=== PATIENT | female | born 1990 | race African-American/Black ===

== ENCOUNTER 2020-12-23 01:15 | Emergency (ER) | payer MEDICAID ==
[~2020-12-23] VITALS: Ht 177.8 cm; Wt 65.8 kg
--- NOTE | 2020-12-23 01:25 | NUR ---
ED Nurse Note: Placed call to pt, no answer in ED lobby, pt not present, will re-attempt.
--- NOTE | 2020-12-23 01:40 | NUR ---
ED Nurse Note: Pt re-called for triage, in lobby sleeping in chair, awakened and pt states "im ok, give me a minute", pt informed to come to window when ready, will re-attempt.
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
[2020-12-23 03:07] VITALS: BP 127/91
--- NOTE | 2020-12-23 03:20 | NUR ---
ED Nurse Note: Provided pt with warm blanket.
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
--- NOTE | 2020-12-23 04:09 | NUR ---
ED Nurse Note: Pt ambulated to bathroom with no difficulty.
[2020-12-23] MEDS ORDERED: ACETAMINOPHEN500 M3 ORAL (04:19)
[2020-12-23] MEDS ORDERED: Lidocaine 2% Visc 15ml soln ORAL ONE (04:30)
[2020-12-23] MEDS ORDERED: LIDOCAINE VISC100 ML ORAL (04:33)
[2020-12-23 04:39] VITALS: BP 114/76
--- NOTE | 2020-12-23 05:39 | NUR ---
ER DISCHARGE NOTE: Patient is cleared to be discharged per ER MD, pt is aaox4, on room air, with stable vital signs. pt was given d/c and prescription instructions, pt was able to verbalize understanding, pt id band removed. pt is able to ambulate with steady gait. pt took all belongings.
[2020-12-23 05:50] VITALS: BP 117/76
== END 2020-12-23 05:52 | disposition home or self-care (01) ==
LOC: EMR 01:58
DX: S00.83XA Contusion of other part of head, initial encounter (principal); S01.511A Laceration without foreign body of lip, initial encounter; Y04.2XXA Assault by strike against or bumped into by another person, initial encounter; Y92.9 Unspecified place or not applicable; Z88.1 Allergy status to other antibiotic agents
CPT/HCPCS: 99282